=== PATIENT | male | born 1980 | race Hispanic/Latino ===

== ENCOUNTER 2021-01-25 09:07 | Emergency (ER) | payer SELFPAY | END 2021-01-25 13:28 | disposition home or self-care (01) | LOC: ERS 09:07 | DX: T20.10XA Burn of first degree of head, face, and neck, unspecified site, initial encounter (principal); I10 Essential (primary) hypertension; X10.2XXA Contact with fats and cooking oils, initial encounter | CPT/HCPCS: 99283; G0390 ==

== ENCOUNTER 2021-02-20 20:37 | Emergency (ER) | payer SELFPAY ==
[2021-02-20] MEDS ORDERED: Acetaminophen 325 MG TAB ONE (21:15)
[2021-02-21 10:59] LABS: SARS-CoV-2 PCR by NAA Not Detected (NotDetected)
== END 2021-02-20 21:59 | disposition home or self-care (01) ==
LOC: ERS 20:37
DX: J18.9 Pneumonia, unspecified organism (principal); Z20.822 Contact with and (suspected) exposure to COVID-19
CPT/HCPCS: 71045; U0003; U0005